=== PATIENT | female | born 1985 | race African-American/Black ===

== ENCOUNTER 2016-10-02 23:59 | Emergency (ER) | payer MEDICAID, OTHER ==
[~2016-10-02] VITALS: Ht 167.6 cm; Wt 146.0 kg
[2016-10-03] MEDS ORDERED: KETOROLAC 60MG/2ML VIAL IM ONE (05:00)
[2016-10-03 05:13] VITALS: BP 121/72
== END 2016-10-03 06:33 | disposition home or self-care (01) ==
LOC: ER 23:59
DX: J03.80 Acute tonsillitis due to other specified organisms (principal); B96.89 Other specified bacterial agents as the cause of diseases classified elsewhere; Z88.0 Allergy status to penicillin
CPT/HCPCS: 87070; 87430; 96372; 99284; J1885